=== PATIENT | female | born 1985 | race Caucasian/White ===

== ENCOUNTER 2021-09-17 13:42 | Emergency (ER) | payer OTHER ==
[2021-09-17 14:06] VITALS: BP 135/106
[2021-09-17] MEDS ORDERED: BACITRACIN 0.9 GM PACKET OINTMENT TP ONE (14:45)
[2021-09-17] MEDS ORDERED: KETOROLAC TROMETHAMINE 10 MG TABLET PO ONE (14:45)
[2021-09-17] MEDS ORDERED: POVIDONE-IODINE 10% 15 ML SOLUTION UD TP ONE (14:45)
[2021-09-17] MEDS ORDERED: LIDOCAINE 1% 10 ML VIAL SQ ONE (14:45)
[2021-09-17 15:17] LABS: COVID AG,FIA SOURCE NASAL SWAB
[2021-09-17] MEDS ORDERED: CEPH500C3 PO (16:54)
[2021-09-17] MEDS ORDERED: PERTUSS(ACELL),DIPH,TET VAC/PF 0.5 ML SYRINGE IM. ONE (17:00)
== END 2021-09-17 17:16 | disposition home or self-care (01) ==
LOC: EMS 13:45
DX: S41.112A Laceration without foreign body of left upper arm, initial encounter (principal); S71.112A Laceration without foreign body, left thigh, initial encounter; K21.9 Gastro-esophageal reflux disease without esophagitis; Z20.822 Contact with and (suspected) exposure to COVID-19; W45.8XXA Other foreign body or object entering through skin, initial encounter; Y93.39 Activity, other involving climbing, rappelling and jumping off; Y92.89 Other specified places as the place of occurrence of the external cause; Y99.8 Other external cause status
CPT/HCPCS: 12002; 87426; 90471; 90715; 99283; J3490